=== PATIENT | male | born 1985 | race Two or more races ===

== ENCOUNTER 2022-11-28 03:43 | Emergency (ER) | payer OTHER, SELFPAY ==
[2022-11-28 03:50] VITALS: BP 140/80; BP 154/94; PULSE 70; PULSE 74; RESP 18; TEMP 37.1; O2SAT 100; O2SAT 99; BMI 19.5
--- NOTE | 2022-11-28 04:31 | ED_ITS ---
HPI - Psych General Chief Complaint: ETOH/Substance Use Stated Complaint: drug use Time Seen by Provider: 11/28/22 04:31 History of Present Illness HPI Narrative: Patient is a 37-year-old male wandering around the street. Found by PD. Question smoke PCP. Patient was combative with PD. Combative with the EMS staff. Given for further evaluation patient aware of self and place. Patient is not sure if he wants detox Related Data Allergies Allergy/AdvReac Type Severity Reaction Status Date / Time No Known Allergies Allergy Unverified 04/21/20 18:22 Review of Systems Review of Systems: Positive polysubstance abuse. Positive altered mental status Yes all other systems are reviewed and are negative FORMERLY [facility], [facility] Past Medical History Attestation statement: The following information was validated with the patient. Social History Social History Advance Directives: No Advance Directives Information Provided: Yes Physical Exam Vital Signs: Vital Signs: Last Vital Signs Temp 98.7 F 11/28/22 06:02 Pulse 73 11/28/22 06:02 Resp 18 11/28/22 06:02 BP 149/89 H 11/28/22 06:02 Pulse Ox 97 11/28/22 06:02 O2 Del Method Room Air 11/28/22 06:02 BMI result Body Mass Index 19.5 Appearance: Alert. Oriented X3. No acute distress. Eyes: Pupils equal, round and reactive to light. ENT: Pharynx normal. Neck: Normal inspection. Neck supple. No lymph nodes noted. No crepitus CVS: Normal heart rate and rhythm. Pulses normal. Normal S1 and S2 Respiratory: No respiratory distress. Breath sounds normal. No Wheezing. No rales Abdomen: Soft and nontender. No rigidity. No distention. good BS x4 Skin: Skin warm and dry. Normal skin color. Normal skin turgor. Extremities: No lower extremity edema. Neurovascular intact to all extremities. No Lacerations. No Rash Neuro: Oriented X 3. No motor deficit. No sensory deficit. Moving all extermities. No slurred speech Medications Administered Discontinued Medications Generic Name Dose Route Start Last Admin Trade Name Freq PRN Reason Stop Dose Admin Sodium Chloride 1,000 mls @ 999 mls/hr 11/28/22 04:45 11/28/22 06:21 Ns IV 11/28/22 05:45 Infused .Q1H1M ERICA Infusion Medical Decision Making Medical Decision Making MDM Narrative: Patient had altered mental status. He was wandering around the street naked. Girlfriend called PD believing that he might have smoked PCP. Patient was combative with PD. De-escalated using verbal technique offered patient food. Will get care team to evaluate patient. No overt signs of trauma Differential Diagnosis Differential Diagnoses: The differential diagnosis associated with the presentation includes Polysubstance abuse, psychiatric illness Lab Data 11/28/22 05:07 11/28/22 05:07 Labs: Lab Results 11/28/22 11/28/22 11/28/22 Range/Units 05:07 05:07 05:07 WBC 5.6 (4.8-10.8) X10*3/uL RBC 4.63 (4.60-5.80) X10*6/uL Hgb 14.0 (14.0-18.0) g/dl Hct 42.1 (42.0-52.0) % MCV 90.9 (80.0-98.0) fL MCH 30.2 (27.0-33.0) pg MCHC 33.3 (31.0-36.0) g/dl RDW 13.4 (11.0-16.0) % Plt Count 282 (160-400) X10*3/uL MPV 9.6 (9.4-12.4) fL Immature Gran % (Auto) 0.2 (0.0-0.4) % Neut % (Auto) 64.8 (45-73) % Lymph % (Auto) 22.8 (20-40) % Crowley % (Auto) 10.7 (2-11) % Eos % (Auto) 1.1 (0-4) % Baso % (Auto) 0.4 (0-2) % Lymph # (Auto) 1.3 (1.2-4.9) X10*3/uL Crowley # (Auto) 0.6 (0.1-1.2) X10*3/uL Eos # (Auto) 0.1 (0.0-0.4) X10*3/uL Baso # (Auto) 0.0 (0.0-0.2) X10*3/uL Abs Immat Gran (auto) 0.01 (0.00-0.03) X10*3/uL Absolute Neuts (auto) 3.7 (2.0-8.3) x10*3/uL Absolute Nucleated RBC 0.000 (0.0-0.012) X10*3/uL Nucleated RBC % (auto) 0.0 (0.0-0.2) /100WBC Sodium 144 (135-145) mmol/L Potassium 4.1 (3.3-5.1) mmol/L Chloride 110 H (96-108) mmol/L Carbon Dioxide 27 (22-29) mmol/L Anion Gap 11 L (12-20) BUN 15 (9-16) mg/dL Creatinine 0.89 (0.5-1.4) mg/dL Estim Creat Clear Calc 101.4 Estimated GFR > 60 POC Glucose (60-115) mg/dL Random Glucose 109 (60-115) mg/dL Calcium 9.2 (8.4-10.2) mg/dL Total Bilirubin 0.5 (0.0-1.0) mg/dL Direct Bilirubin 0.1 (0.0-0.5) mg/dL AST 27 (5-37) U/L ALT 23 (0-40) U/L Alkaline Phosphatase 75 (39-117) U/L Total Protein 7.1 (6.5-8.0) g/dL Albumin 4.1 (3.5-5.0) g/dL Ethyl Alcohol < 10 mg/dL 11/28/22 Range/Units 05:10 WBC (4.8-10.8) X10*3/uL RBC (4.60-5.80) X10*6/uL Hgb (14.0-18.0) g/dl Hct (42.0-52.0) % MCV (80.0-98.0) fL MCH (27.0-33.0) pg MCHC (31.0-36.0) g/dl RDW (11.0-16.0) % Plt Count (160-400) X10*3/uL MPV (9.4-12.4) fL Immature Gran % (Auto) (0.0-0.4) % Neut % (Auto) (45-73) % Lymph % (Auto) (20-40) % Crowley % (Auto) (2-11) % Eos % (Auto) (0-4) % Baso % (Auto) (0-2) % Lymph # (Auto) (1.2-4.9) X10*3/uL Crowley # (Auto) (0.1-1.2) X10*3/uL Eos # (Auto) (0.0-0.4) X10*3/uL Baso # (Auto) (0.0-0.2) X10*3/uL Abs Immat Gran (auto) (0.00-0.03) X10*3/uL Absolute Neuts (auto) (2.0-8.3) x10*3/uL Absolute Nucleated RBC (0.0-0.012) X10*3/uL Nucleated RBC % (auto) (0.0-0.2) /100WBC Sodium (135-145) mmol/L Potassium (3.3-5.1) mmol/L Chloride (96-108) mmol/L Carbon Dioxide (22-29) mmol/L Anion Gap (12-20) BUN (9-16) mg/dL Creatinine (0.5-1.4) mg/dL Estim Creat Clear Calc Estimated GFR POC Glucose 119 H (60-115) mg/dL Random Glucose (60-115) mg/dL Calcium (8.4-10.2) mg/dL Total Bilirubin (0.0-1.0) mg/dL Direct Bilirubin (0.0-0.5) mg/dL AST (5-37) U/L ALT (0-40) U/L Alkaline Phosphatase (39-117) U/L Total Protein (6.5-8.0) g/dL Albumin (3.5-5.0) g/dL Ethyl Alcohol mg/dL Discharge Plan Discharge Clinical Impression: Altered mental status Patient Disposition: Still a Patient
--- OUTSIDE RECORDS SUMMARY | 2022-11-28 05:02 | XMS_ITS | Continuity of Care Document ---
Author Name Unknown Organization [facility] ter Address [address] [place] [id number]- Care Team Providers Care Industrial Engineering Director Name Role Phone Not on Staff, PCP Primary Care Physician Unavail able [place] [facility] [place] - 11/16/[address] [address]- Encounter Diagnosis Alcohol intoxication(Final) - 11/16/21 Discharge Disposition: A-D/C Home Attending Physician: Radha Hearn MD Admitting Physician: Radha Hearn MD Referring Physician: Not on Staff, Referring MD Allergies, Adverse Reactions, Alerts No Known Allergies Vital Signs Most recent to oldest [Reference Range]: 1 2 Oxygen Saturation [94-100 %] 99 % (11/16/21 11:11 AM) 99 % (11/16/21 9:52 AM) Pulse Rate [55-90 bpm] 61 bpm (11/16/21 11:11 AM) 64 bpm (11/16/21 9:52 AM) Blood Pressure [90-138/55-84 mm Hg] 111/ 68mm Hg (11/16/21 9:52 AM) Respiratory Rate [16-30 br/min] 16 br/mi n (11/16/21 11:11 AM) 16 br/min (11/16/21 9:52 AM) Temperature [96.8-100.4 DegF] 98.4 DegF (11/16/21 9:52 AM) Mode of Delivery (Oxygen) Room air (11/16/21 11:11 AM) Room air (11/16/21 9:52 AM) Temperature Route Oral (11/16/21 9:52 AM)
--- OUTSIDE RECORDS SUMMARY | 2022-11-28 05:02 | XMS_ITS | Continuity of Care Document ---
Author Name Unknown Organization [facility] ter Address [address] [place] [id number]- Care Team Providers Care Sheet Metal Shop Supervisor Name Role Phone Not on Staff, PCP Primary Care Physician Unavail able [place]counter [facility] [place](s): 11/28/21 - 11/29/[address] [address]- Encounter Diagnosis PCP intoxication(Final) - 11/28/21 Discharge Disposition: A-D/C Home Attending Physician: Kennedy Villegas DO Admitting Physician: Kennedy Villegas DO Referring Physician: Not on Staff, Referring MD Allergies, Adverse Reactions, Alerts No Known Allergies Vital Signs Most recent to oldest [Reference Range]: 1 2 3 Height 178 cm (11/28/21 5:33 PM) 178 cm (11/28/21 12:37 PM) 178 cm (11/28/21 8:44 AM) Weight 63.3 kg (11/28/21 5:33 PM) 63.3 kg (11/28/21 12:37 PM) 63.3 kg (11/28/21 8:44 AM) Oxygen Saturation [94-100 %] 98 % (11/29/21 6:39 AM) 98 % (11/29/21 3:35 AM) 99 % (11/28/21 11:34 PM) Pulse Rate [55-90 bpm] 64 bpm (11/29/21 6:39 AM) 64 bpm (11/29/21 3:35 AM) 55 bpm (11/28/21 11:34 PM) Body Mass Index [18.5-24.99] 19.98 (11/28/21 5:33 PM) 19.98 (11/28/21 12:37 PM) 19.98 (11/28/21 8:44 AM) Blood Pressure [90-138/55-84 mm Hg] 101/66mm Hg (11/29/21 6:39 AM) 117/52mm Hg (11/29/21 3:35 AM) 126/72mm Hg (11/28/21 11:34 PM) Respiratory Rate [16-30 br/min] 18 br/min (11/29/21 6:39 AM) 15 br/min *L* (11/29/21 3:35 AM) 14 br/min *L* (11/29/21 2:15 AM) Temperature [96.8-100.4 DegF] 98.2 DegF (11/29/21 6:39 AM) 98.1 DegF (11/29/21 3:35 AM) 98.1 DegF (11/28/21 12:37 PM) Mode of Delivery (Oxygen) Room air (11/29/21 3:35 AM) Room air (11/28/21 5:33 PM) Room air (11/28/21 12:37 PM) Blood pressure sites Arm, left (11/28/21 5:33 PM) Arm, right (11/28/21 12:37 PM) Arm, right (11/28/21 8:44 AM) Temperature Route Oral (11/29/21 6:39 AM) Oral (11/29/21 3:35 AM) Oral (11/28/21 8:44 AM) Weight Obtained Via Standing scale (11/28/21 8:44 AM)
--- OUTSIDE RECORDS SUMMARY | 2022-11-28 05:02 | XMS_ITS | Continuity of Care Document ---
Author Name Unknown Organization [facility] ter Address [address] [place] [id number]- Care Team Providers Care Abattoir Manager Name Role Phone Not on Staff, PCP Primary Care Physician Unavail able [place] [facility] [place] 11/09/[place] - 11/10/[address] [address]- Encounter Diagnosis Laceration of forehead(Final) - 11/10/21 Discharge Disposition: A-D/C Home Attending Physician: Destini Mckinney DO Admitting Physician: Destini Mckinney DO Referring Physician: Not on Staff, Referring MD Allergies, Adverse Reactions, Alerts No Known Allergies Results Radiology Reports * Exam Date Time Procedure Performing Provider Status 11/09/21 11:38 PM Hand Min 3 Views Right Monica England ; Hilda (Verified) Notes: (Hand Min 3 Views Right) Reason For Exam: with Pain;Trauma RESULT: Hand Min 3 Views Right Hand Min 3 Views Right, 3 views INDICATION: Trauma; with Pain; Clinical Question(s): Foreign Body; volar palm COMPARISON: None. FINDINGS: No fractures or bone lesions. No arthritic changes. 1 mm density projecting over the palmar soft tissues of second proximal phalanx. IMPRESSION: No acute osseous abnormality. 1 mm foreign body, which appears to be within palmar soft tissues of second proximal phalanx. Findings were relayed by Dr. Roberson to Shirley Russo MD via [employer] on 11/09/2021 11:45 PM . I have personally reviewed the images and I agree with this report. WSN: [id number] Ordering Physician: Shirley Russo Dictated By: Vishal Roberson DO Dictated Date/Time: 11/09/21 11:47 p Reviewed By: Anirudh Reid MD Signed By: Anirudh Reid MD Signed Date/Time: 11/09/21 11:52 pm Transcribed By: SPENCER Transcribed Date/Time: 11/09/21 11:46 pm * Exam Date Time Procedure Performing Provider Status 11/09/21 11:38 PM Elbow Min 3 Views Left Monica England ; Hilda (Verified) Notes: (Elbow Min 3 Views Left) Reason For Exam: with Pain;Trauma RESULT: Elbow Min 3 Views Left Elbow Min 2 Views Left INDICATION: Trauma; with Pain; Clinical Question(s): Fracture COMPARISON: None. FINDINGS: Acute intra-articular radial head fracture with minimal lateral displacement. No dislocation. No arthritic changes. No definite joint effusion. IMPRESSION: Acute intra-articular minimally displaced radial head fracture. Findings were relayed by Dr. Roberson to Shirley Russo MD via [employer] on 11/09/2021 11:43 PM . I have personally reviewed the images and I agree with this report. WSN: [id number] Ordering Physician: Shirley Russo Dictated By: Vishal Roberson DO Dictated Date/Time: 11/09/21 11:44 p Reviewed By: Anirudh Reid MD Signed By: Anirudh Reid MD Signed Date/Time: 11/09/21 11:49 pm Transcribed By: SPENCER Transcribed Date/Time: 11/09/21 11:43 pm Vital Signs Most recent to oldest [Reference Range]: 1 2 3 Oxygen Saturation [94-100 %] 97 % (11/10/21 11:50 AM) 99 % (11/10/21 10:16 AM) 98 % (11/10/21 8:08 AM) Pulse Rate [55-90 bpm] 76 bpm (11/10/21 11:50 AM) 78 bpm (11/10/21 10:16 AM) 74 bpm (11/10/21 8:08 AM) Blood Pressure [90-138/55-84 mm Hg] 112/76mm Hg (11/10/21 11:50 AM) 110/70mm Hg (11/10/21 10:16 AM) 107/72mm Hg (11/10/21 8:08 AM) Respiratory Rate [16-30 br/min] 20 br/min (11/10/21 11:50 AM) 20 br/min (11/10/21 10:16 AM) 19 br/min (11/10/21 8:08 AM) Temperature [96.8-100.4 DegF] 98.5 DegF (11/10/21 11:50 AM) 98.3 DegF (11/10/21 10:16 AM) 98.3 DegF (11/10/21 8:08 AM) Mode of Delivery (Oxygen) Room air (11/10/21 11:50 AM) Room air (11/10/21 10:16 AM) Room air (11/10/21 8:08 AM) Blood pressure sites Arm, right (11/10/21 11:50 AM) Arm, right (11/10/21 10:16 AM) Arm, right (11/10/21 8:08 AM) Temperature Route Oral (11/10/21 11:50 AM) Axillary (11/10/21 10:16 AM) Axillary (11/10/21 8:08 AM)
[2022-11-28] MEDS: 0.9 % Sodium Chloride 1,000 ML 999 ML IV (05:08)
[2022-11-28 05:12] LABS: Basophils Percent Auto 0.4 % (0-2); Eosinophils Absolute Auto 0.1 X10*3/uL (0.0-0.4); Eosinophils Percent Auto 1.1 % (0-4); Hematocrit 42.1 % (42.0-52.0); Imm Gran Abs Auto 0.01 X10*3/uL (0.00-0.03); Imm Gran Pct Auto 0.2 % (0.0-0.4); Lymphocytes Absolute Auto 1.3 X10*3/uL (1.2-4.9); Lymphocytes Percent Auto 22.8 % (20-40); MANUAL DIFF FLAG NO; Mean Corpuscular HGB Conc 33.3 g/dl (31.0-36.0); Mean Corpuscular Hemoglobin 30.2 pg (27.0-33.0); Mean Corpuscular Volume 90.9 fL (80.0-98.0); Mean Platelet Volume 9.6 fL (9.4-12.4); Monocytes Absolute Auto 0.6 X10*3/uL (0.1-1.2); Monocytes Percent Auto 10.7 % (2-11); Neutrophils Absolute Auto 3.7 x10*3/uL (2.0-8.3); Neutrophils Percent Auto 64.8 % (45-73); Platelet Count 282 X10*3/uL (160-400); Red Blood Count 4.63 X10*6/uL (4.60-5.80); Red Cell Distribution Width 13.4 % (11.0-16.0); White Blood Count 5.6 X10*3/uL (4.8-10.8)
[2022-11-28 05:13] LABS: Glucose, Whole Blood 119 mg/dL (60-115)
--- NOTE | 2022-11-28 05:13 | PC.NURSE ---
late entry- security at bedside. pt cooperative and redirectable, needed encouragement getting dressed into hospital attire as pt did not come to ed in clothing.
--- NOTE | 2022-11-28 05:14 | PC.NURSE ---
bloodwork obtained, 20g IV placed in R FA. pt tolerated well. pt medicated according to mar. pt sitting at bedside. pt cooperative, volume loud although pt is redirectable
[2022-11-28 05:29] LABS: Alanine Aminotransferase 23 U/L (0-40); Albumin Level 4.1 g/dL (3.5-5.0); Alkaline Phosphatase 75 U/L (39-117); Anion Gap 11 (12-20); Aspartate Amino Transferase 27 U/L (5-37); Bilirubin Direct 0.1 mg/dL (0.0-0.5); Bilirubin Total 0.5 mg/dL (0.0-1.0); Blood Urea Nitrogen 15 mg/dL (9-16); Calcium 9.2 mg/dL (8.4-10.2); Carbon Dioxide 27 mmol/L (22-29); Chloride 110 mmol/L (96-108); Creatinine Clr Calc Pharmacy 101.4; Estimated Glomerular Filt Rate > 60; Glucose Random 109 mg/dL (60-115); Potassium 4.1 mmol/L (3.3-5.1); Sodium 144 mmol/L (135-145); Total Protein 7.1 g/dL (6.5-8.0)
[2022-11-28 05:34] LABS: Ethanol < 10 mg/dL
[2022-11-28 06:02] VITALS: BP 149/89; PULSE 73; RESP 18; TEMP 37.1; O2SAT 97
--- NOTE | 2022-11-28 06:12 | PC.NURSE ---
pt has been trying to call this number [phone] ? pt girlfriend.
--- NOTE | 2022-11-28 06:24 | PC.NURSE ---
late entry- pt girlfriend gave ems/ pd number to have [facility] [place] staff call with update. girlfriend Daysi Lamberto [phone]
[2022-11-28 06:47] LABS: Amphetamine Screen Urine Not Detected (Not Detect); Barbiturates, Urine Not Detected (Not Detect); Benzodiazepines Screen Urine POSITIVE (Not Detect); Cannabinoid Screen Urine POSITIVE (Not Detect); Cocaine Screen Urine POSITIVE (Not Detect); Fentanyl, urine Not Detected (Not Detect); Opiate Screen Urine Not Detected (Not Detect); Phencyclidine Screen Urine POSITIVE (Not Detect)
[2022-11-28 07:27] VITALS: BP 119/81; PULSE 58; RESP 18; TEMP 36.9; O2SAT 98
--- NOTE | 2022-11-28 07:27 | PC.NURSE ---
patient a&o to person/place, pt requesting to discharge, provider notified- provider at bedside speaking with patient. vitals obtained by tech, will continue to monitor.
--- NOTE | 2022-11-28 10:30 | PC.NURSE ---
patient a&ox3, steady gait, speaking in full sentences, provider notified pt being discharged
== END 2022-11-28 10:31 | disposition still patient (30) ==
PROVIDERS: Emergency Medicine Emergency Medical Services; Emergency Provider Emergency Medicine
DX: R41.82 Altered mental status, unspecified (principal); F22 Delusional disorders; Z79.899 Other long term (current) drug therapy
CPT/HCPCS: 36415; 80048; 80076; 80307; 82077; 82947; 85025; 96360; 99284

== ENCOUNTER 2022-12-26 12:29 | Emergency (ER) | payer OTHER, SELFPAY ==
[2022-12-26] MEDS: LORazepam 1 MG TABLET 2 MG PO (13:10)
[2022-12-26] MEDS: HaloperidoL 5 MG TABLET 10 MG PO (13:10)
[2022-12-26] MEDS: diphenhydrAMINE HCL 25 MG CAPSULE 50 MG PO (13:11)
[2022-12-26 13:15] VITALS: BMI 23.0
--- NOTE | 2022-12-26 13:23 | ED_ITS ---
HPI - Psych General Chief Complaint: ETOH/Substance Use Stated Complaint: detox request per ems Time Seen by Provider: 12/26/22 12:50 Source: EMS and other (Girlfriend, Elese) Mode of arrival: EMS Limitations: altered mental status History of Present Illness HPI Narrative: 37-year-old male who presents emergency department for evaluation of agitation altered mental status. The patient is delusional, he is yelling out, he is swearing at staff, he will then calm down in tell the staff that he loves us, he repeats for his frequently. The patient's girlfriend is here in the emergency department with him. She states that he uses PCP and cocaine. In reviewing his ER visits he was seen on 11/28/2022 when he was found wandering the streets after of smoking PCP. At that time he was combative with staff and the police. The patient's tox screen from his previous visit was positive for PCP, benzodiazepines, cocaine and marijuana, his alcohol was below detectable limits. Related Data Allergies Allergy/AdvReac Type Severity Reaction Status Date / Time No Known Allergies Allergy Verified 12/26/22 13:18 Review of Systems Review of Systems: Yes Unobtainable due to mental status PMFSH Social History Social History Alcohol intake: never Advance Directives: No Physical Exam Vital Signs: Vital Signs: Last Vital Signs Temp 97.5 F 12/26/22 16:06 Pulse 96 12/26/22 16:06 Resp 16 12/26/22 16:06 BP 120/69 12/26/22 16:06 Pulse Ox 98 12/26/22 16:06 O2 Del Method Room Air 12/26/22 16:06 BMI result Body Mass Index 23.0 General: Awake, alert, male patient, he is delusional most likely secondary to illicit drug use. He is very loud and often swears at staff and becomes threatening but can be redirected and calms down. He did take oral medications for his agitation and he was able to eat food. HEENT: Head is normocephalic atraumatic, pupils equal round reactive light, sclera contact however normal, mouth revealed moist member Neck: Supple Lungs: Clear to auscultation breath sounds symmetric bilaterally Heart: Regular rate rhythm, normal S1-S2, no murmurs rubs gallops Abdomen: Soft, nontender, nondistended, normoactive bowel sounds Back: Nontender Extremities: Moves all extremities symmetrically Neuro: Patient is oriented to person only, he is delusional, exam appears to be nonfocal Medications Administered Discontinued Medications Generic Name Dose Route Start Last Admin Trade Name Dat PRN Reason Stop Dose Admin Diphenhydramine HCl 50 mg 12/26/22 13:01 12/26/22 13:11 Diphenhydramine Hcl 25 Mg Capsule PO 12/26/22 13:02 50 mg ONCE ONE Administration Haloperidol 10 mg 12/26/22 13:01 12/26/22 13:10 Haloperidol 5 Mg Tablet PO 12/26/22 13:02 10 mg ONCE ONE Administration Lorazepam 2 mg 12/26/22 13:12/26/22 13:10 Lorazepam 1 Mg Tablet PO 12/26/22 13:02 2 mg ONCE STA Administration Medical Decision Making Medical Decision Making MDM Narrative: 37-year-old male who presents emergency department for evaluation of agitation and delusions after using illicit drugs. Patient is similar presentation on 11/28/2022 his urine tox screen was positive for PCPs, benzodiazepines, cocaine and marijuana. The patient was initially combative with the police and EMS when he arrived in the emergency department he was initially cooperative but then would have verbal outbursts. We were able to redirect him and he did take oral medications in order to calm him down and treat drug induced delusions which included Haldol 10 mg, Benadryl 50 mg and Ativan 2 mg orally. His girlfriend states that he needs to get into a detox program however the patient is not capable to make this decision at this time. I did order the following tests to be performed when the patient becomes more cooperative: CBC, CMP, ethanol level, urine drug screen. I did order Haldol 10 mg, Benadryl 50 mg and Ativan 2 mg orally for his delusions and agitation. 1510: My interpretation patient's laboratory data is as follows: CBC, CMP were normal. Urine tox screen was positive for cocaine, PCP and marijuana-similar to previous study. The patient is now more appropriate, he is answering questions appropriately. 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 The patient girlfriend is here in the emergency department and is insisting that the patient go to detox again help. At this time the patient is voluntary and does want to talk to a recovery food service team member to pursue outpatient detox. 1622: The patient has been seen by our sports medicine coordinator. At this time, the only detox bed that would that we treat PCP addiction is [facility] and there is no bed available. The patient was given instructions to contact [facility] tomorrow to see if there is a bed available and to keep calling him until he can get a spot at their facility. The patient was discharged home. Differential Diagnosis Differential includes was not limited to drug induced delusions, electrolyte abnormalities, head injury, alcohol intoxication Lab Data 12/26/22 14:09 12/26/22 14:09 Labs: Lab Results 12/26/22 12/26/22 12/26/22 Range/Units 14:09 14:09 14:09 WBC 5.4 (4.8-10.8) X10*3/uL RBC 5.41 (4.60-5.80) X10*6/uL Hgb 16.1 (14.0-18.0) g/dl Hct 48.7 (42.0-52.0) % MCV 90.0 (80.0-98.0) fL MCH 29.8 (27.0-33.0) pg MCHC 33.1 (31.0-36.0) g/dl RDW 12.6 (11.0-16.0) % Plt Count 262 (160-400) X10*3/uL MPV 9.5 (9.4-12.4) fL Immature Gran % (Auto) 0.2 (0.0-0.4) % Neut % (Auto) 54.8 (45-73) % Lymph % (Auto) 34.0 (20-40) % Bates % (Auto) 7.6 (2-11) % Eos % (Auto) 3.0 (0-4) % Baso % (Auto) 0.4 (0-2) % Lymph # (Auto) 1.8 (1.2-4.9) X10*3/uL Bates # (Auto) 0.4 (0.1-1.2) X10*3/uL Eos # (Auto) 0.2 (0.0-0.4) X10*3/uL Baso # (Auto) 0.0 (0.0-0.2) X10*3/uL Abs Immat Gran (auto) 0.01 (0.00-0.03) X10*3/uL Absolute Neuts (auto) 3.0 (2.0-8.3) x10*3/uL Absolute Nucleated RBC 0.000 (0.0-0.012) X10*3/uL Nucleated RBC % (auto) 0.0 (0.0-0.2) /100WBC Sodium 144 (135-145) mmol/L Potassium 4.1 (3.3-5.1) mmol/L Chloride 106 (96-108) mmol/L Carbon Dioxide 28 (22-29) mmol/L Anion Gap 14 (12-20) BUN 14 (9-16) mg/dL Creatinine 1.04 (0.5-1.4) mg/dL Estim Creat Clear Calc 101.7 Estimated GFR > 60 Random Glucose 93 (60-115) mg/dL Calcium 9.6 (8.4-10.2) mg/dL Total Bilirubin 0.4 (0.0-1.0) mg/dL AST 13 (5-37) U/L ALT 13 (0-40) U/L Alkaline Phosphatase 76 (39-117) U/L Total Protein 7.7 (6.5-8.0) g/dL Albumin 4.3 (3.5-5.0) g/dL Urine Opiates Screen (Not Detect) Urine Fentanyl Screen (Not Detect) Ur Barbiturates Screen (Not Detect) Ur Phencyclidine Scrn (Not Detect) Ur Amphetamines Screen (Not Detect) U Benzodiazepines Scrn (Not Detect) Urine Cocaine Screen (Not Detect) U Marijuana (THC) Screen (Not Detect) Ethyl Alcohol < 10 mg/dL 12/26/22 Range/Units 14:15 WBC (4.8-10.8) X10*3/uL RBC (4.60-5.80) X10*6/uL Hgb (14.0-18.0) g/dl Hct (42.0-52.0) % MCV (80.0-98.0) fL MCH (27.0-33.0) pg MCHC (31.0-36.0) g/dl RDW (11.0-16.0) % Plt Count (160-400) X10*3/uL MPV (9.4-12.4) fL Immature Gran % (Auto) (0.0-0.4) % Neut % (Auto) (45-73) % Lymph % (Auto) (20-40) % Bates % (Auto) (2-11) % Eos % (Auto) (0-4) % Baso % (Auto) (0-2) % Lymph # (Auto) (1.2-4.9) X10*3/uL Bates # (Auto) (0.1-1.2) X10*3/uL Eos # (Auto) (0.0-0.4) X10*3/uL Baso # (Auto) (0.0-0.2) X10*3/uL Abs Immat Gran (auto) (0.00-0.03) X10*3/uL Absolute Neuts (auto) (2.0-8.3) x10*3/uL Absolute Nucleated RBC (0.0-0.012) X10*3/uL Nucleated RBC % (auto) (0.0-0.2) /100WBC Sodium (135-145) mmol/L Potassium (3.3-5.1) mmol/L Chloride (96-108) mmol/L Carbon Dioxide (22-29) mmol/L Anion Gap (12-20) BUN (9-16) mg/dL Creatinine (0.5-1.4) mg/dL Estim Creat Clear Calc Estimated GFR Random Glucose (60-115) mg/dL Calcium (8.4-10.2) mg/dL Total Bilirubin (0.0-1.0) mg/dL AST (5-37) U/L ALT (0-40) U/L Alkaline Phosphatase (39-117) U/L Total Protein (6.5-8.0) g/dL Albumin (3.5-5.0) g/dL Urine Opiates Screen Not Detected (Not Detect) Urine Fentanyl Screen Not Detected (Not Detect) Ur Barbiturates Screen Not Detected (Not Detect) Ur Phencyclidine Scrn POSITIVE H (Not Detect) Ur Amphetamines Screen Not Detected (Not Detect) U Benzodiazepines Scrn Not Detected (Not Detect) Urine Cocaine Screen POSITIVE H (Not Detect) U Marijuana (THC) Screen POSITIVE H (Not Detect) Ethyl Alcohol mg/dL Discharge Plan Discharge Clinical Impression: Cocaine abuse, PCP (phencyclidine) abuse, Marijuana abuse, Drug-induced psychotic disorder with delusions Patient Disposition: Home, Self-Care Additional Instructions: Your urine drug screen was positive for PCP, cocaine and marijuana. These with the same 3 drugs that were in your urine tox screen on 11/28/2022-1 month ago. You were seen by our sports medicine coordinator. The only detox facility that helps with PCP addiction is [facility] in [place]. There were no beds available there at this time. Call the [facility] rehab number daily until you can get into their facility for treatment. Follow-up with your doctor in 2 days. Please return to the emergency department if your symptoms get worse or if you develop any symptoms that are concerning to you.
[2022-12-26 14:14] LABS: MANUAL DIFF FLAG NO
[2022-12-26 14:19] LABS: Basophils Percent Auto 0.4 % (0-2); Eosinophils Absolute Auto 0.2 X10*3/uL (0.0-0.4); Hematocrit 48.7 % (42.0-52.0); Hemoglobin 16.1 g/dl (14.0-18.0); Imm Gran Abs Auto 0.01 X10*3/uL (0.00-0.03); Imm Gran Pct Auto 0.2 % (0.0-0.4); Lymphocytes Absolute Auto 1.8 X10*3/uL (1.2-4.9); Mean Corpuscular HGB Conc 33.1 g/dl (31.0-36.0); Mean Corpuscular Hemoglobin 29.8 pg (27.0-33.0); Mean Platelet Volume 9.5 fL (9.4-12.4); Monocytes Absolute Auto 0.4 X10*3/uL (0.1-1.2); Monocytes Percent Auto 7.6 % (2-11); Neutrophils Percent Auto 54.8 % (45-73); Platelet Count 262 X10*3/uL (160-400); Red Blood Count 5.41 X10*6/uL (4.60-5.80); Red Cell Distribution Width 12.6 % (11.0-16.0); White Blood Count 5.4 X10*3/uL (4.8-10.8)
[2022-12-26 14:30] LABS: Ethanol < 10 mg/dL
[2022-12-26 14:33] LABS: Alanine Aminotransferase 13 U/L (0-40); Albumin Level 4.3 g/dL (3.5-5.0); Alkaline Phosphatase 76 U/L (39-117); Anion Gap 14 (12-20); Aspartate Amino Transferase 13 U/L (5-37); Bilirubin Total 0.4 mg/dL (0.0-1.0); Blood Urea Nitrogen 14 mg/dL (9-16); Calcium 9.6 mg/dL (8.4-10.2); Carbon Dioxide 28 mmol/L (22-29); Chloride 106 mmol/L (96-108); Creatinine Clr Calc Pharmacy 101.7; Estimated Glomerular Filt Rate > 60; Glucose Random 93 mg/dL (60-115); Potassium 4.1 mmol/L (3.3-5.1); Sodium 144 mmol/L (135-145); Total Protein 7.7 g/dL (6.5-8.0)
[2022-12-26 14:34] LABS: Amphetamine Screen Urine Not Detected (Not Detect); Barbiturates, Urine Not Detected (Not Detect); Benzodiazepines Screen Urine Not Detected (Not Detect); Cannabinoid Screen Urine POSITIVE (Not Detect); Cocaine Screen Urine POSITIVE (Not Detect); Fentanyl, urine Not Detected (Not Detect); Opiate Screen Urine Not Detected (Not Detect); Phencyclidine Screen Urine POSITIVE (Not Detect)
[2022-12-26 16:06] VITALS: BP 120/69; PULSE 96; RESP 16; TEMP 36.4; O2SAT 98
--- NOTE | 2022-12-26 16:24 | PC.NURSE ---
Recovery team attempted to meet with pt, pt would not participate in eval
--- NOTE | 2022-12-26 17:39 | MHC.RECOVSUP ---
attempted to meet with pt in ED18H for potential ats bed search. Pt is unable to wake and hold a conversation but recovery resources were provided to his spouce and we discussed [facility] not having any beds for him at this time and defensive line coach Jf will follow up with her.
--- NOTE | 2022-12-26 17:40 | MHC.RECOVSUP ---
? Reason for consult Recovery support. o Current location: ED18H o Identified substance use concern: PCP - Seeking ATS (detox) - Support ? Intervention: o Community resources provided o Harm reduction discussion ? Plan: o Patient to follow up with H after discharge ? Additional information: Patient seeking help to stop smoking PCP.. At the moment theres no ATS Bed.. After talk with girlfriend and the care team it was suggested that if he really wants help to section him self in the morning..
--- NOTE | 2022-12-26 18:15 | MHC.RECOVSUP ---
attempted to meet with pt again, he is still not able to hold a conversation at this time. Discussed with his spouse that the bed search at this time has been exhausted and to follow up from the community. With LELA Rhoades discussed the possibility of sectioning him in the morning. provider is aware pt is good to dc.
[2022-12-26 19:33] VITALS: BP 111/66; PULSE 58; RESP 15; TEMP 36.6; O2SAT 100
--- NOTE | 2022-12-26 20:12 | PC.NURSE ---
pt awake speaking in full sentences, ambulatory, gait steady
== END 2022-12-26 20:13 | disposition home or self-care (01) ==
PROVIDERS: Emergency Provider Emergency Medicine Emergency Medical Services
DX: F14.150 Cocaine abuse with cocaine-induced psychotic disorder with delusions (principal); F16.150 Hallucinogen abuse with hallucinogen-induced psychotic disorder with delusions; F12.150 Cannabis abuse with psychotic disorder with delusions
CPT/HCPCS: 36415; 80053; 80307; 85025; 99283; 99284